=== PATIENT | female | born 1990 | race Caucasian/White ===

== ENCOUNTER 2017-11-07 22:24 | Emergency (ER) | payer SELFPAY ==
--- NOTE | 2017-11-07 22:27 | ER Report ---
History and Physical Time Seen By MD: 22:27 HPI/ROS CHIEF COMPLAINT: Left ankle and foot pain HISTORY OF PRESENT ILLNESS: Patient is a 27-year-old female here with complaints of left ankle and foot pain after falling down several steps and landing on the foot. Patient reports significant swelling after the incident which took place shortly prior to arrival. Patient applied ice, took ibuprofen without significant relief. Patient is neurovascularly intact at time of evaluation and denies further injury at this time. Patient denies loss of consciousness, neck pain, chest pain, palpitations, nausea, vomiting. REVIEW OF SYSTEMS: Respiratory: No cough, no dyspnea. Cardiovascular: No chest pain, no palpitations. Gastrointestinal: No vomiting, no abdominal pain. Musculoskeletal: + LLE ankle and lateral foot ecchymosis and swelling Allergies: Coded Allergies: Penicillins (Verified Allergy, Severe, THROAT SWELLING/HIVES, 11/07/17) amoxicillin (Verified Allergy, Severe, THORAT SWELLING/HIVES, 11/07/17) latex (Verified Allergy, Intermediate, HIVES, 11/07/17) Home Meds Active Scripts Naproxen Sodium (ALEVE) 220 Mg Capsule, 440 MG PO TID for 7 Days, #40 CAPSULE Prov:MARV SANDOVAL DO 11/08/17 Tramadol Hcl (TRAMADOL HCL) 50 Mg Tablet, 50 MG PO Q6H Y for PAIN, #12 TAB 0 Refills Prov:MARV SANDOVAL DO 11/08/17 Reported Medications Sertraline Hcl (SERTRALINE HCL) 50 Mg Tablet, 1 TAB PO QDAY, TAB 11/07/17 Constitutional Vital Sign - Last 24 Hours 11/07/17 11/08/17 22:29 01:12 Temp 98.3 Pulse 82 69 Resp 16 16 B/P (MAP) 127/79 112/71 (85) Pulse Ox 97 97 O2 Delivery Room Air Room Air Physical Exam General Appearance: The patient is alert, has no immediate need for airway protection and no current signs of toxicity. Musculoskeletal: Neck: Neck is supple and non tender. Extremities have full range of motion, + left ankle and lateral foot tenderness to palpation and ROM Skin: + ecchymosis of left ankle/foot DIFFERENTIAL DIAGNOSIS: After history and physical exam differential diagnosis was considered for fracture, contusion, sprain, strain Medical Decision Making Data Points Laboratory Hematology Test 11/07/17 22:50 Urine HCG, Qualitative Negative (NEGATIVE) Chemistry Test 11/07/17 22:50 Urine HCG, Qualitative Negative (NEGATIVE) Urinalysis Test 11/07/17 22:50 Urine HCG, Qualitative Negative (NEGATIVE) ED Course/Re-evaluation ED Course Patient is a 27-year-old female here with left ankle and lateral foot pain and swelling after falling down several steps. Patient is able to bear weight. X- ray imaging of the tib-fib, ankle, foot showed no acute fracture. Neurovascular exam is intact. He was given a dose of tramadol for pain control. Patient was placed in a walking boot and advised to follow-up with orthopedic in one week. Patient voiced understanding. Decision to Disposition Date: Nov 08, 2017 Decision to Disposition Time: 00:58 Depart Departure Latest Vital Signs Vital Signs Date Time Temp Pulse Resp B/P (MAP) Pulse Ox O2 Delivery O2 Flow Rate FiO2 11/08/17 01:12 69 16 112/71 (85) 97 Room Air 11/07/17 22:29 98.3 Impression: Primary Impression: SPRAIN OF UNSPECIFIED LIGAMENT OF LEFT ANKLE, INIT ENCNTR Condition: Improved Disposition: HOME OR SELF-CARE New Scripts Naproxen Sodium (ALEVE) 220 Mg Capsule 440 MG PO TID for 7 Days, #40 CAPSULE Prov: MARV SANDOVAL DO 11/08/17 Tramadol Hcl (TRAMADOL HCL) 50 Mg Tablet 50 MG PO Q6H Y for PAIN, #12 TAB 0 Refills Prov: MARV SANDOVAL DO 11/08/17 Patient Instructions: Ankle Sprain (ED), Naproxen (By mouth), Tramadol (By mouth) Additional Instructions: No acute fracture was identified on x-ray imaging. Take one tablet of tramadol every 6-8 hours as needed for breakthrough pain. He may take naproxen 2 tablets every 6-8 hours as needed for pain. Please call orthopedics for a follow-up appointment in 1 week. Please keep your splint in place for structural support. Please return promptly if you develop worsening swelling, worsening pain, numbness. MARV SANDOVAL DO Nov 07, 2017 22:27
[2017-11-07] MEDS ORDERED: SERT-184 PO (22:41)
[2017-11-08] MEDS ORDERED: traMADol 50 MG TAB PO ONE (00:10)
--- NOTE | 2017-11-08 00:29 | RADIOLOGY IMAGING REPORT ---
FACILITY: [facility] PATIENT NAME: Shane Peck : 1990 MR: [id number] V: [id number] EXAM DATE: ORDERING PHYSICIAN: MARV SANDOVAL TECHNOLOGIST: Location: [facility] - [place] Patient: Shane Peck : 1990 Visit/Account:[id number] Date of Sevice: 11/07/2017 LEFT ANKLE: Indication: Injury. Technique: Frontal and lateral views were obtained. Comparison: None. Findings: There is no evidence of fracture, subluxation, or other acute deformity. There is uniform m ineralization of the bony structures. There is anterolateral soft tissue swelling. IMPRESSION: Soft tissue swelling. No evidence of fracture. Report Dictated By: Darrell Conde MD at 11/08/2017 12:25 AM Report E-Signed By: Darrell Conde MD at 11/08/2017 12:26 AM WSN:[id number]
--- NOTE | 2017-11-08 00:29 | RADIOLOGY IMAGING REPORT ---
FACILITY: [facility] - [place] PATIENT NAME: Shane Peck : 1990 MR: [id number] V: [id number] EXAM DATE: ORDERING PHYSICIAN: MARV SANDOVAL TECHNOLOGIST: Location: [facility] Patient: Shane Peck : 1990 Visit/Account:[id number] Date of Sevice: 11/07/2017 LOWER LEG: Indication: Injury. Technique: AP and lateral views were obtained. Comparison: None. Findings: There is no evidence of fracture, dislocation, or other acute deformity. There is normal mi neralization of the skeletal structures. There is no evidence of soft tissue abnormality or foreign b telly. IMPRESSION: Negative left lower leg. Report Dictated By: Darrell Conde MD at 11/08/2017 12:24 AM Report E-Signed By: Darrell Conde MD at 11/08/2017 12:25 AM WSN:[id number]
--- NOTE | 2017-11-08 00:31 | RADIOLOGY IMAGING REPORT ---
FACILITY: [facility] - [place] PATIENT NAME: Shane Peck : 1990 MR: [id number] V: [id number] EXAM DATE: ORDERING PHYSICIAN: MARV SANDOVAL TECHNOLOGIST: [place] [facility] [place] : 1990 Visit/Account:[id number] Date of Sevice: 11/07/2017 FOOT: Indication: Injury. Technique: 2 views were obtained. Comparison: None. Findings: There is no evidence of fracture, dislocation, or other acute deformity. There is uniform m ineralization of the skeletal structures. There are no signs of joint space narrowing, erosion, or os teophyte formation. No soft tissue abnormalities are identified. IMPRESSION: Negative left foot. Report Dictated By: Darrell Conde MD at 11/08/2017 12:26 AM Report E-Signed By: Darrell Conde MD at 11/08/2017 12:27 AM WSN:[id number]
[2017-11-08] MEDS ORDERED: TRAM-420 PO (01:02)
[2017-11-08] MEDS ORDERED: NAPR220C12 PO (01:02)
[2017-11-08 01:12] VITALS: BP 112/71
== END 2017-11-08 01:14 | disposition home or self-care (01) ==
LOC: ER 22:43
DX: S93.402A Sprain of unspecified ligament of left ankle, initial encounter (principal); W10.9XXA Fall (on) (from) unspecified stairs and steps, initial encounter
CPT/HCPCS: 81025; 99284